=== PATIENT | female | born 1995 | race Caucasian/White ===

== ENCOUNTER 2024-03-13 13:47 | Inpatient (IN) ==
[2024-03-13 14:45] LABS: ABS Basophils 0.1 10^3/uL (0.0-0.1); ABS Eosinophils 0.4 10^3/uL (0.0-0.5); ABS Lymphocytes 1.9 10^3/uL (1.0-4.8); ABS Monocytes 0.7 10^3/uL (0.0-0.9); ABS Neutrophils 3.6 10^3/uL (1.5-7.6); Eosinophil % 6.4 %; Hematocrit 29.5 % (35-45); Hemoglobin 10.1 g/dL (11.5-14.3); Lymphocyte % 28.5 %; Mean Corpuscular Hemoglobin 28.7 pg (27-33); Mean Corpuscular Hgb Conc 34.4 g/dL (31-36); Mean Corpuscular Volume 83.4 fL (80-97); Mean Platelet Volume 9.1 fL (7.5-11.2); Nucleated Red Blood Cells % 0.1 %/100WBC (0.0-0.8); Platelet Count 338 10^3/uL (150-450); Red Blood Count 3.54 10^6/uL (3.63-4.92); Red Cell Distribution Width 17.1 % (12-17); White Blood Count 6.6 10^3/uL (3.8-11.8)
[2024-03-13 15:17] LABS: Acetaminophen < 15 mcg/mL; Alcohol, S < 13 mg/dL (<13); Anion Gap 8 mmol/L (2-16); Blood Urea Nitrogen 6 mg/dL (6-24); CO2 Carbon Dioxide 32 mmol/L (22-32); Calcium 11.3 mg/dL (8.6-10.3); Chloride 103 mmol/L (101-111); Creatinine, Serum 0.65 mg/dL (0.51-0.95); Glucose 91 mg/dL (70-100); Potassium 4.5 mmol/L (3.5-5.0); Salicylate < 2.50 mg/dL (<30); Sodium 143 mmol/L (135-145); eGFR CKD-EPI 120.6 (>60)
[2024-03-13 15:26] LABS: HCG Pregnancy < 0.60 mIU/mL
[2024-03-13 15:30] LABS: TSH Ultra Thyroid Stim Horm 1.68 mcIU/mL (0.34-5.60)
[2024-03-13 15:32] LABS: ALT 644 U/L (7-52); AST 66 U/L (13-39); Albumin 3.6 g/dL (3.5-5.7); Albumin/Globulin Ratio 1.6 (1-3); Alkaline Phosphatase 79 U/L (35-149); Globulin 2.3 g/dL (2-4); Total Bilirubin 0.3 mg/dL (0.2-1.0); Total Protein 5.9 g/dL (6.4-8.9)
[2024-03-13 16:33] LABS: Urine Appearance Clear; Urine Bilirubin Negative (Negative); Urine Blood 1+ (Negative); Urine Color Colorless; Urine Glucose Negative (Negative); Urine Ketones Negative (Negative); Urine Nitrite Negative (Negative); Urine Protein Negative (Negative); Urine Specific Gravity 1.004 (1.002-1.030); Urine Urobilinogen Negative (Negative)
[2024-03-13 16:48] LABS: Urine Bacteria Absent /HPF (Absent); Urine Red Blood Cell Trace(0-2/hpf) /HPF (0-Trace); Urine Squamous Epithelial Cell Present /HPF (Absent); Urine White Blood Cell Trace(0-5/hpf) /HPF (0-Trace)
[2024-03-13 16:53] LABS: Urine Benzodiazepine Screen None Detected (None Detect); Urine Cannabinoids Screen None Detected (None Detect); Urine Opiates Screen None Detected (None Detect)
[2024-03-13 18:03] LABS: Hepatitis B Surface Antigen Nonreactive (Nonreactive)
[2024-03-13 18:08] LABS: Hepatitis A Ab IgM Negative (Negative)
[2024-03-13 18:09] LABS: Hepatitis B Core IgM Nonreactive (Nonreactive)
[2024-03-13 18:15] LABS: HIV 4th Generation Nonreactive (Nonreactive)
[2024-03-13 18:21] LABS: Hepatitis C Antibody Negative (Negative)
[2024-03-13 20:39] LABS: Albumin 3.5 g/dL (3.5-5.7); Albumin/Globulin Ratio 1.5 (1-3); Direct Bilirubin 0.1 mg/dL (0.03-0.18); Globulin 2.3 g/dL (2-4); Indirect Bilirubin 0.1 mg/dL (0.3-1.0); Total Bilirubin 0.2 mg/dL (0.2-1.0); Total Protein 5.8 g/dL (6.4-8.9)
[2024-03-14 08:56] LABS: HDL Cholesterol 32.9 mg/dL
[2024-03-14] MEDS: Vitamin THERAPEUTIC TAB PO SCH (09:49)
[2024-03-14] MEDS ORDERED: OLANZapine 5 mg TAB *ODT PO PRN (11:23)
[2024-03-15] MEDS: OLANZapine 10 mg TAB*ODT PO ONE (12:59)
[2024-03-16 10:16] LABS: Albumin 3.5 g/dL (3.5-5.7); Albumin/Globulin Ratio 1.4 (1-3); Calcium 9.2 mg/dL (8.6-10.3); Creatinine, Serum 0.72 mg/dL (0.51-0.95); Globulin 2.5 g/dL (2-4); Potassium 4.4 mmol/L (3.5-5.0); Total Bilirubin 0.2 mg/dL (0.2-1.0); eGFR CKD-EPI 114.6 (>60)
[2024-03-16 10:19] VITALS: BP 106/66
[2024-03-17] MEDS: Al Hydrox/Mg Hydrox/Simet LIQ 30 ML UDC PO PRN (01:35)
[2024-03-17 13:32] LABS: EBV Capsid Ag IgG Ab Positive (Negative); EBV Capsid Ag IgM Ab Negative (Negative); Epstein-Barr Nuclear Antigen Positive (Negative)
== END 2024-03-17 16:30 | disposition home or self-care (01) | DRG 755 ==
LOC: ED 13:47 → EDHOLD 21:33 → BSU 21:42
PROVIDERS: ADMIT Psychiatry & Neurology Psychiatry; ATTEND Student in an Organized Health Care Education/Training Program